=== PATIENT | female | born 1990 | race Caucasian/White ===

== ENCOUNTER 2018-10-03 08:23 | Emergency (ER) | payer BC, OTHER ==
[2018-10-03] MEDS ORDERED: IBUPROFEN 600 MG TAB PO ONE (08:45)
--- NOTE | 2018-10-03 08:49 | EDPHY ---
H & P Time Seen by Provider: 10/03/18 08:41 HPI/ROS: HPI Right ankle injury. 28-year-old female by private vehicle. This patient reports that she was walking out from her house when she slipped awkwardly inverting her right ankle. She complains of pain to the lateral aspect of the right ankle and lateral distal aspect of the right foot. She states that her ankle bothers her more than her foot. She is able to bear weight on the right ankle but has some discomfort with this. She denies any other injury or complaint. ROS: Constitutional: No fever, no chills. No weakness. Musculoskeletal: No back pain. No neck pain. As above. No other extremity pain. Skin: No rashes. No lacerations or abrasions. Neurological: No focal weakness or altered sensation. Past medical history: No past medical history. Social history: Nonsmoker. Here by herself. No alcohol. Physical Exam: General Appearance: Alert, no distress. This patient is responding to questions appropriately and in full sentences. This patient appears well- hydrated and well-nourished. Eyes: Pupils equal and round no pallor or injection. No lid edema, erythema or injection. Right foot and ankle exam: She does have some tenderness on palpation over the lateral malleolus, no associated ecchymosis, swelling, erythema. No bony deformity noted on palpation of this area. She also has some tenderness over the 4th and 5th distal metatarsals dorsal aspect. Again, no associated ecchymosis, swelling or erythema. Bony deformity noted on palpation of this area. No tenderness on palpation of the proximal fibula. The right foot and lower extremity is neurovascularly intact. Neurological: Motor sensory function is grossly intact. Cranial nerves are normal. Gait is normal. Skin: Warm and dry, no rashes. Extremities are symmetrical. All joints range without pain or impingement except noted. Psychiatric: No agitation. No depression. Database: EKG: Imaging: Right foot and ankle spray series: Negative for fracture, subluxation, dislocation. Interpreted by me. Procedures: Emergency department course: Triage vital signs reviewed are normal. Patient given 600 mg of ibuprofen for pain. X-ray results and diagnosis of right ankle sprain discussed with the patient. She is able to bear weight. She was fitted with a stirrup splint. Instructions on weight-bearing as tolerated and follow-up discussed with her. Ibuprofen discussed. She feels comfortable going home. Return to emergency department precautions reviewed with her thoroughly. All of her questions were answered. She was discharged from the emergency department in good condition. Differential Diagnosis: The differential diagnosis on this patient includes but is not limited to right ankle sprain, right foot sprain. Fracture, subluxation, dislocation of the right ankle and foot, other significant traumatic injury unlikely. This represents a partial list of diagnoses considered. These considerations are based on history, physical exam, past history, reassessment and diagnostic testing. Smoking Status: Never smoked Constitutional: Initial Vital Signs Temperature (C) 36.8 C 10/03/18 08:35 Heart Rate 88 10/03/18 08:35 Respiratory Rate 18 10/03/18 08:35 Blood Pressure 127/67 H 10/03/18 08:35 O2 Sat (%) 97 10/03/18 08:35 O2 Delivery Mode Room Air Allergies/Adverse Reactions: No Known Allergies Allergy (Verified 10/03/18 08:42) Departure - Departure Disposition: Home, Routine, Self-Care Clinical Impression: Right ankle sprain Condition: Good Instructions: Ankle Stirrup Splint (ED), Ankle Sprain (ED) Additional Instructions: Read and follow provided instructions. Follow-up with your primary care physician or customer energy specialist in 2-3 days for re-evaluation. Ibuprofen dosin mg every 6 hours with meals for the next 3 days only. Take only as needed for pain. Weightbear as tolerated to the right ankle. Return to the emergency department for worsening pain, swelling, discoloration or other serious concerns. Referrals: Kings Chi MD [Medical Doctor] - As per Instructions
[2018-10-03 09:05] VITALS: BP 124/82
== END 2018-10-03 09:15 | disposition home or self-care (01) ==
LOC: CED 08:23
DX: S93.401A Sprain of unspecified ligament of right ankle, initial encounter (principal); X50.0XXA Overexertion from strenuous movement or load, initial encounter; Y92.019 Unspecified place in single-family (private) house as the place of occurrence of the external cause
CPT/HCPCS: 73610-PO; 73630-PO; L4350